=== PATIENT | female | born 1995 | race Caucasian/White ===

== ENCOUNTER 2016-05-10 12:51 | Emergency (ER) ==
[2016-05-10 13:27] VITALS: BP 115/71
[2016-05-10 15:07] LABS: MANUAL DIFF NEEDED? NO
[2016-05-10 15:15] LABS: BASO% 0.3 % (0.0-0.8); EOS# 0.19 X1000 (0.0-0.7); EOS% 1.8 % (0.0-10.0); IMM GRAN# 0.07 X1000 (0.0-0.04); IMM GRAN% 0.7 % (0.0-0.5); LYMPH# 2.02 X1000 (1.2-3.4); LYMPH% 19.6 % (20.5-51.1); MCH 31.1 PG (27-31); MCHC 33.3 g/dL (33-37); MCV 93.2 FL (81-99); MONO# 0.83 X1000 (0.11-0.59); MPV 10.6 FL (7.4-10.4); NEUT% 69.6 % (42.2-75.2); PLT 231 X1000 (130-400); RBC 3.54 XMIL (4.2-5.4)
[2016-05-10 15:37] LABS: AGAP 8; ALBUMIN 3.7 g/dL (3.5-5.0); ALKALINE PHOSPHATASE 77 U/L (32-104); BUN 6 mg/dL (8-22); CALCIUM 8.8 mg/dL (8.8-10.2); CHLORIDE 104 mmol/L (98-107); COSMO 269; GOT 17 U/L (10-30); GPT 17 U/L (10-36); SODIUM 135 mmol/L (136-145); TCO2 22 mmol/L (25-35); TOTAL PROTEIN 6.5 g/dL (6.3-8.3)
--- NOTE | 2016-05-10 16:25 | PROVIDER DOCUMENTATION ---
HPI-Female /OB/Breast - General Source: reports: patient, family - History of Present Illness-Female /OB Does patient report she is ?: Yes (25) Location of complaint: reports: other (generalized) Radiation: reports: none Quality of Pain: reports: aching Severity in ED: reports: mild Onset/Duration: reports: unsure Timing: reports: still present, intermittent Context/Activities at Onset: reports: light activity Vaginal Symptoms: reports: no symptoms Vaginal Bleeding Amount: None Urinary Symptoms: reports: no symptoms Related Symptoms: reports: no symptoms Leakage of Fluid: none Sexual intercourse history: reports: Single Partner Contraception: reports: none Modifying Factors: improves with: nothing Associated Symptoms: reports: dizziness, nausea, syncope, vomiting, weakness. denies: anxiety, back/neck pain, chest pain, constipation, cough, diaphoresis, diarrhea, fatigue, fever/chills, joint pain, loss of appetite, malaise, rash, seizure, sensory/motor loss, swelling/mass in abdomen Similar Symptoms Previously?: Yes Recently seen or treated by another doctor?: No - LMP/ History : 1 Para: 0 : 0 <Liss Power - Last Filed: 05/10/16 17:41> <Bill Cadena - Last Filed: 05/10/16 17:45> - General Chief Complaint: Female Stated Complaint: 25 WKS PREG/WEAKNESS Time Seen by Provider: 05/10/16 16:16 Allergies/Adverse Reactions: Patient Allergies Allergy/AdvReac Type Severity Reaction Status Date / Time latex Allergy Severe "BREAKS ME Verified 11/11/15 09:22 OUT" tramadol HCl * [From Ultram] AdvReac Intermediate RASH Verified 11/11/15 09:22 Home Medications: Home Medication List Medication Instructions Recorded Confirmed Last Taken Type No Home Medications 05/10/16 05/10/16 Unknown History - History of Present Illness-Female /OB Nature of Presenting Problem: Pt is 20 y/o F presents to the ED with generalized weakness. Pt states she will get light headed and pass out. Pt states having N and V. Pt states symptoms have been present intermittently. Pt states she is [address] Ambrosio has prescribed her meds for nausea. Pt denies F. Pt denies vaginal bleeding. (Liss Power) Review of Systems - Adult - REVIEW OF SYSTEMS - ADULT Constitutional: denies: chills, fever Eyes: denies: blurred vision, double vision Ears, Nose, Mouth & Throat: denies: ear pain, nose pain, throat pain Cardiovascular: reports: irregular heart rate (tachy). denies: chest pain, heart murmur Respiratory: denies: cough, shortness of breath, wheezing Gastrointestinal: reports: nausea, vomiting. denies: abdominal pain, diarrhea Genitourinary: denies: dysuria, hematuria Musculoskeletal: reports: muscle weakness. denies: bone pain, joint pain, neck pain Integumentary: denies: hives, itching Neurological: reports: dizziness/vertigo (dizziness), headache/migraines (CURIEL), syncope Psychiatric: denies: anxiety, depression Endocrine: reports: no symptoms reported Hematologic/Lymphatic: reports: no symptoms reported Allergic/Immunologic: reports: no symptoms reported All Other Systems: Reviewed and Negative <Liss Power - Last Filed: 05/10/16 17:41> Past History - Adult - PAST MEDICAL HISTORY-ADULT Review of Records: reports: Nursing Assessment Review, Medications Reviewed, Social history reviewed & non-contributory. Major Childhood Illnesses: reports: denies history Cardiovascular: reports: denies history Respiratory: reports: asthma Gastrointestinal: reports: GERD Obstetrical/Gynecological: reports: ovarian cysts Genitourinary: reports: denies history Musculoskeletal: reports: denies history Neurological: reports: denies history Psychiatric: reports: anxiety, depression Endocrine/Immune: reports: anemia Other Conditions: reports: denies history - PRIOR SURGERIES/PROCEDURES Surgical/Procedure History: reports: other (ov cyst) - IMMUNIZATION STATUS Childhood Immunizations: See Nurse Assessment Flu Vaccine: See Nurse Assessment - FAMILY HISTORY Family History: reviewed, not pertinent - SOCIAL HISTORY Smoking: cigarettes, greater than 1 pack/day Provider spent 3-5 mins advising pt. on dangers of tobacco.: Discussed manners to quit use, and f/u contacts for add'l counseling. Substance Use: denies Living Situation: family <Liss Power - Last Filed: 05/10/16 17:41> Physical Exam-General - PHYSICAL EXAM-ADULT Initial Vital Signs Reviewed: Yes - CONSTITUTIONAL General Appearance: appears well, alert, no apparent distress - EYES Eyes: PERRL/EOMI, pink conjunctivae, fundi clear, no AV nicking - HEAD, EARS, NOSE, MOUTH & THROAT HENMT: normocephalic/atraumatic, moist mucous membranes, normal ENT inspection, TMs normal, pharynx normal - NECK Neck: non-tender, full range of motion, supple, normal inspection - RESPIRATORY Respiratory: chest non-tender, lungs clear, normal breath sounds, no pleuratic chest pain, no respiratory distress, no accessory muscle use - CARDIOVASCULAR Cardiovascular: normal peripheral pulses, no edema, no gallop, no JVD, no murmur , tachycardia - GASTROINTESTINAL (ABDOMEN) Abdominal Exam: normal bowel sounds, non tender, soft, no organomegaly, no pulsatile mass - LYMPHATIC Lymphatic: no adenopathy - MUSCULOSKELETAL Back Exam: normal inspection, no CVA tenderness, no vertebral tenderness Extremity: normal range of motion, non-tender, normal gait, normal inspection, no pedal edema, no calf tenderness, normal capillary refill, pelvis stable - SKIN Integumentary: normal color, normal turgor, warm/dry - NEUROLOGIC Neurologic: grossly normal, no motor/sensory deficits - PSYCHIATRIC Psych/Mental Status: normal mood/affect, oriented x 3 <Liss Power - Last Filed: 05/10/16 17:41> Progress - CONSULTS/PCP/HOSPITALIST Notification #1 *Consult/PCP/Hospitalist*: Dr. Steward Time Discussed: 17:41 (Dr. Steward states f/u in office ) Reason/Comments: Dr. Cadena consults with Dr. Steward about Pt Consult Disposition: F/U in office <Liss Power - Last Filed: 05/10/16 17:41> <Bill Cadena - Last Filed: 05/10/16 17:45> - PLAN OF CARE/RESULTS Progress/Plan/Lab Results: Laboratory Tests 05/10/16 05/10/16 14:55 14:55 WBC 10.33 RBC 3.54 L Hgb 11.0 L Hct 33.0 L MCV 93.2 MCH 31.1 H MCHC 33.3 RDW Std Deviation 12.3 Plt Count 231 MPV 10.6 H Immature Gran % (Auto) 0.7 H Neut % (Auto) 69.6 Lymph % (Auto) 19.6 L Barnes % (Auto) 8.0 Eos % (Auto) 1.8 Baso % (Auto) 0.3 Immature Gran # (Auto) 0.07 H Neut # (Auto) 7.19 H Lymph # (Auto) 2.02 Barnes # (Auto) 0.83 H Eos # (Auto) 0.19 Baso # (Auto) 0.03 Sodium 135 L Potassium 4.0 Chloride 104 Carbon Dioxide 22 L Anion Gap 8 BUN 6 L Creatinine 0.4 L Estimated GFR/1.73 m2 > 60 BUN/Creatinine Ratio 15 Glucose 120 H Calculated Osmolality 269 Calcium 8.8 Total Bilirubin 0.20 AST 17 ALT 17 Alkaline Phosphatase 77 Total Protein 6.5 Albumin 3.7 Globulin 3.0 Albumin/Globulin Ratio 1.0 Orders Category Date Time Status ED: Orthostatic Vital Signs (E as directed Care 05/10/16 13:22 Active FSBS [Finger Stick Blood Sugar (ED)] DIRECTED Care 05/10/16 13:22 Active Heart Tones NOW Care 05/10/16 13:54 Active Saline Loc NOW Care 05/10/16 13:54 Active CBC WITH DIFF [HEME] Stat Lab 05/10/16 14:55 Completed COMPREHENSIVE METABOLIC PANEL [CHEM] Stat Lab 05/10/16 14:[address] W/POSS RFLX CULT [URINALYSIS] Stat Lab 05/10/16 13:54 Uncollected Vital Signs - 24 hr 05/10/16 05/10/16 13:17 13:27 Temperature 98 F Pulse Rate 102 H Pulse Rate [ 110 H Sitting] Pulse Rate [ 115 H Standing] Pulse Rate [ 105 H Supine] Respiratory 19 Rate Blood Pressure 108/64 Blood Pressure 120/74 [Sitting] Blood Pressure 115/72 [Standing] Blood Pressure 115/71 [Supine] O2 Sat by Pulse 99 Oximetry Laboratory Tests 05/10/16 05/10/16 05/10/16 14:55 14:55 16:20 WBC 10.33 RBC 3.54 L Hgb 11.0 L Hct 33.0 L MCV 93.2 MCH 31.1 H MCHC 33.3 RDW Std Deviation 12.3 Plt Count 231 MPV 10.6 H Immature Gran % (Auto) 0.7 H Neut % (Auto) 69.6 Lymph % (Auto) 19.6 L Barnes % (Auto) 8.0 Eos % (Auto) 1.8 Baso % (Auto) 0.3 Immature Gran # (Auto) 0.07 H Neut # (Auto) 7.19 H Lymph # (Auto) 2.02 Barnes # (Auto) 0.83 H Eos # (Auto) 0.19 Baso # (Auto) 0.03 Sodium 135 L Potassium 4.0 Chloride 104 Carbon Dioxide 22 L Anion Gap 8 BUN 6 L Creatinine 0.4 L Estimated GFR/1.73 m2 > 60 BUN/Creatinine Ratio 15 Glucose 120 H Calculated Osmolality 269 Calcium 8.8 Total Bilirubin 0.20 AST 17 ALT 17 Alkaline Phosphatase 77 Total Protein 6.5 Albumin 3.7 Globulin 3.0 Albumin/Globulin Ratio 1.0 Urine Source CLEAN CATCH Urine Color YELLOW Urine Clarity SL. CLOUDY A Urine pH 7.0 Ur Specific [place] 1.010 Urine Protein TRACE A Urine Ketones NEGATIVE Urine Blood NEGATIVE Urine Nitrite NEGATIVE Urine Bilirubin NEGATIVE Urine Urobilinogen NORMAL Urine Microscopic RBC Not Reportable Urine WBC TRACE A Urine Microscopic WBC <10 Ur Epithelial Cells <10 Urine Glucose NEGATIVE Heart Tones- 155 (Liss Power) Departure <Liss Power - Last Filed: 05/10/16 17:41> - Departure Time of Disposition Order: 17:44 Certified Medical Emergency: Emergent <Bill Cadena - Last Filed: 05/10/16 17:45> - Departure DIAGNOSIS: Hyperemesis gravidarum Migraine Qualifiers: Migraine type: without aura Status migrainosus presence: without status migrainosus Intractability: not intractable Qualified Code(s): G43.009 - Migraine without aura, not intractable, without status migrainosus Disposition: HOME 01 Condition: Stable Additional Instructions: ED Follow Up Instructions: You have been treated by a care provider in the Emergency Department. These instructions are being provided to you so you can have an understanding of how to care for yourself upon discharge. Upon discharge from the Emergency Department, you are responsible for making arrangements for follow-up care by a physician of your choice. Take all prescribed medications as directed. Return to the Emergency Department immediately for any new or worsening symptoms. You may call the Physician Referral phone number at [phone] to obtain a list of Physicians who are taking new patients. Referrals: Raghav Ambrosio MD [Primary Care Provider] - Attestation - Scribe Verification/Attestation Scribe:: Liss Power Acting as Scribe for:: Bill Cadena Scribe documention review:: This chart was documented by a scribe and accurately reflects the service the provider performed and the decisions made by the provider. <Liss Power - Last Filed: 05/10/16 17:41> Physician Attestation
[2016-05-10 16:34] LABS: URINE CULTURE PL NEEDED? NO; URINE SOURCE CLEAN CATCH
[2016-05-10 17:04] LABS: BILIRUBIN URINE NEGATIVE (NEGATIVE); BLOOD URINE NEGATIVE (NEGATIVE); CLARITY SL. CLOUDY (CLEAR); COLOR YELLOW; GLUCOSE URINE NEGATIVE (NEGATIVE); LEUKOCYTES URINE TRACE (NEGATIVE); NITRITE URINE NEGATIVE (NEGATIVE); PROTEIN URINE TRACE mg/dL (NEGATIVE); UROBILINOGEN URINE NORMAL
[2016-05-10 17:06] LABS: URINE EPITHELIAL CELLS <10 /HPF (<10); URINE WBC <10 /HPF (<10)
== END 2016-05-10 18:20 | disposition home or self-care (01) ==
LOC: P.ED 12:51
DX: O21.0 Mild hyperemesis gravidarum (principal); O26.892 Other specified pregnancy related conditions, second trimester; G43.009 Migraine without aura, not intractable, without status migrainosus; R00.0 Tachycardia, unspecified; M62.81 Muscle weakness (generalized); R42 Dizziness and giddiness; R51 Headache; R55 Syncope and collapse; O99.332 Smoking (tobacco) complicating pregnancy, second trimester; F17.210 Nicotine dependence, cigarettes, uncomplicated; Z3A.25 25 weeks gestation of pregnancy
CPT/HCPCS: 36415; 80053; 81001; 82948; 85025; 99283

== ENCOUNTER 2016-08-15 09:36 | Inpatient (IN) ==
[2016-08-15] MEDS ORDERED: TYLENOL PO PRN (21:10)
[2016-08-15] MEDS ORDERED: BRETHINE SUBQ PRN (21:10)
[2016-08-15] MEDS ORDERED: PEPCID IV PRN (21:10)
[2016-08-15] MEDS ORDERED: PITOCIN 30 UNITS/LR 30 UNITS/500 ML IV.SOLN IV SCH (21:10)
[2016-08-15] MEDS ORDERED: AMBIEN PO PRN (21:10)
[2016-08-15] MEDS ORDERED: STADOL IV PRN ×2 (21:10)
[2016-08-15] MEDS ORDERED: ZOFRAN IV PRN (21:10)
[2016-08-15] MEDS ORDERED: KEFZOL 1 GM/D5W 1 GM/50 ML IVPB IV PRN (21:10)
[2016-08-15] MEDS: LR 1,000 ML IV SCH (22:05)
[2016-08-15 22:53] LABS: MANUAL DIFF NEEDED? NO
[2016-08-15 22:53] LABS: URINE SOURCE VOIDED
[2016-08-15] MEDS ORDERED: CYTOTEC PO ONE (23:00)
[2016-08-15 23:06] LABS: UR AMPHETAMINES QUAL NONE DETECTED (NONE DETECT); UR BARBITUATES QUAL NONE DETECTED (NONE DETECT); UR BENZODIAZEPIN QUAL NONE DETECTED (NONE DETECT); UR CANNABINOIDS QUAL NONE DETECTED (NONE DETECT); UR COCAINE QUAL NONE DETECTED (NONE DETECT); UR MDMA QUAL NONE DETECTED (NONE DETECT); UR METHADONE QUAL NONE DETECTED (NONE DETECT); UR METHAMPHETAMINE QUAL NONE DETECTED (NONE DETECT); UR OPIATES QUAL NONE DETECTED (NONE DETECT); UR OXYCODONE QUAL NONE DETECTED (NONE DETECT); UR PCP QUAL NONE DETECTED (NONE DETECT); UR TCA QUAL NONE DETECTED (NONE DETECT)
[2016-08-15 23:08] LABS: BASO% 0.1 % (0.0-0.8); EOS# 0.08 X1000 (0.0-0.7); EOS% 0.9 % (0.0-10.0); HEMATOCRIT 31.1 % (37.0-47.0); HEMOGLOBIN 10.2 g/dL (12.0-16.0); IMM GRAN# 0.03 X1000 (0.0-0.04); IMM GRAN% 0.3 % (0.0-0.5); LYMPH# 1.92 X1000 (1.2-3.4); LYMPH% 22.3 % (20.5-51.1); MCH 29.7 PG (27-31); MCHC 32.8 g/dL (33-37); MCV 90.4 FL (81-99); MONO# 0.75 X1000 (0.11-0.59); MONO% 8.7 % (1.7-9.3); MPV 10.5 FL (7.4-10.4); NEUT% 67.7 % (42.2-75.2); PLT 289 X1000 (130-400); RBC 3.44 XMIL (4.2-5.4)
[2016-08-15 23:08] LABS: BILIRUBIN URINE NEGATIVE (NEGATIVE); BLOOD URINE 1+ (NEGATIVE); CLARITY CLEAR (CLEAR); COLOR YELLOW; GLUCOSE URINE NEGATIVE (NEGATIVE); LEUKOCYTES URINE NEGATIVE (NEGATIVE); NITRITE URINE NEGATIVE (NEGATIVE); PROTEIN URINE NEGATIVE (NEGATIVE); SP GRAVITY URINE 1.015; UROBILINOGEN URINE NORMAL
[2016-08-16] MEDS ORDERED: CYTOTEC PO SCH (03:00)
[2016-08-16] MEDS: STADOL IV PRN ×2 (03:08→07:23)
[2016-08-16] MEDS: LR 1,000 ML IV SCH ×4 (06:37→18:08)
[2016-08-16] MEDS ORDERED: FENTANYL-BUPIV-NS 2 MCG-0.1% 200 ML EPIDURAL PRN (07:13)
[2016-08-16] MEDS ORDERED: XYLOCAINE-MPF 1% INJ ONE ×2 (09:52→17:08)
[2016-08-16] MEDS ORDERED: XYLOCAINE-MPF 1% 5 ML ONE (09:56)
[2016-08-16] MEDS ORDERED: NAROPIN 0.2% ONE ×2 (10:13→15:31)
[2016-08-16] MEDS ORDERED: XYLOCAINE 1% INJ ONE (16:37)
[2016-08-16] MEDS ORDERED: MINERAL OIL MISC ONE (16:38)
[2016-08-16] MEDS ORDERED: NORCO-5 PO PRN (20:27)
[2016-08-16] MEDS ORDERED: PERCOCET-10 PO PRN (20:27)
[2016-08-16] MEDS ORDERED: HYDROXYZINE IM PRN (20:27)
[2016-08-16] MEDS ORDERED: PITOCIN IM PRN (20:27)
[2016-08-16] MEDS ORDERED: HYDROXYZINE PO PRN (20:27)
[2016-08-16] MEDS ORDERED: PITOCIN 20 UNITS/LR 20 UNITS/1,000 ML IV.SOLN IV SCH (20:27)
[2016-08-16] MEDS ORDERED: CYTOTEC PO PRN (20:27)
[2016-08-16] MEDS ORDERED: PERI MEDS (DERMOPLAST/NUPERCAINAL/TUCKS) MISC PRN (20:27)
[2016-08-16] MEDS ORDERED: PITOCIN 30 UNITS/LR 30 UNITS/500 ML IV.SOLN IV ONE (20:27)
[2016-08-16] MEDS ORDERED: BENADRYL PO PRN (20:27)
[2016-08-16] MEDS ORDERED: BENADRYL IV PRN (20:27)
[2016-08-16] MEDS ORDERED: XYLOCAINE-MPF 1% INJ PRN (20:27)
[2016-08-16] MEDS ORDERED: M-M-R II VACCINE SUBQ ONE (20:27)
[2016-08-16] MEDS ORDERED: AMBIEN PO PRN (20:27)
[2016-08-16] MEDS ORDERED: PERCOCET-5 PO PRN (20:27)
[2016-08-16] MEDS ORDERED: PRECARE PO SCH (20:27)
[2016-08-16] MEDS ORDERED: MINERAL OIL PO PRN (20:27)
[2016-08-16] MEDS ORDERED: BOOSTRIX VACCINE IM ONE (20:27)
[2016-08-16] MEDS: PERICOLACE PO SCH (21:34)
[2016-08-16] MEDS: MOTRIN PO PRN (21:34)
--- NOTE | 2016-08-16 23:51 | OPERATIVE NOTE ---
PROCEDURE DATE: 08/16/2016 DELIVERY PHYSICIAN: Dr. Ambrosio. TYPE OF DELIVERY: Vaginal delivery with outlet vacuum forceps. ANESTHESIA: Epidural. FINDINGS: At 1915 a 7 pound 13 ounce female infant was delivered in occiput anterior presentation after spontaneous rotation from ROT. Apgars were 9 at 1 minute and 10 at 5 minutes. SUMMARY: Ms. Christina is a 21-year-old primigravida at 39 and 2/7 weeks gestation. Blood type is O positive. Rubella immune. Hepatitis B surface antigen, HIV, and group B strep were negative. The patient was brought in last night for Cytotec for elective induction of labor. This morning she was 2 cm dilated, membranes ruptured, revealing clear fluid. IV Pitocin was begun. An epidural placed for labor pain management. The patient progressed through labor slowly. There were no signs of distress or dystocia. She became complete and pushed for a little over an hour. At that point there was maternal exhaustion. After discussing options with the patient, decision was made to proceed with outlet vacuum forceps. She was placed in dorsal lithotomy position. The perineum was prepped, draped in usual fashion. The bladder was drained. Vacuum forceps was applied at a +1 station. A midline episiotomy was performed. With the patient pushing and gentle traction in spontaneous rotation from ROT to OA and the head was delivered, the oropharynx was bulb suctioned. The shoulders and body delivered without complications. Cord was clamped and cut. The was handed to the nurses further care and evaluation. Cord blood was obtained. Placenta was spontaneously delivered and was intact. There were no cervical lacerations. The second-degree midline episiotomy was repaired in layers using 2-0 Vicryl suture. Blood loss was approximately 200 mL. There were no complications. The patient remained in the LDR with family recovering. cc: MD Mikhail Reyes MD
[2016-08-17 06:01] LABS: HEMATOCRIT 27.2 % (37.0-47.0); HEMOGLOBIN 8.6 g/dL (12.0-16.0); MCH 28.5 PG (27-31); MCHC 31.6 g/dL (33-37); MCV 90.1 FL (81-99); MPV 10.3 FL (7.4-10.4); RBC 3.02 XMIL (4.2-5.4)
[2016-08-17] MEDS: MOTRIN PO PRN ×2 (08:27→21:46)
[2016-08-17] MEDS ORDERED: PATIENT'S OWN MED PO PRN (09:00)
[2016-08-17] MEDS: NORCO-10 PO PRN ×2 (14:52→21:46)
[2016-08-17] MEDS: PERICOLACE PO SCH (21:40)
[2016-08-18] MEDS: MOTRIN PO PRN ×2 (07:19→14:44)
[2016-08-18 11:14] VITALS: BP 118/57
[2016-08-18] MEDS: NORCO-10 PO PRN (14:44)
== END 2016-08-18 17:15 | disposition home or self-care (01) ==
LOC: P.LD 21:05
PROVIDERS: ADMIT Obstetrics & Gynecology; ATTEND Obstetrics & Gynecology